=== PATIENT | female | born 1975 | race Two or more races ===

== ENCOUNTER 2017-11-17 14:19 | Emergency (ER) | payer OTHER ==
[2017-11-17] MEDS: IBUPROFEN 600 MG TAB PO (16:37)
== END 2017-11-17 18:08 | disposition home or self-care (01) ==
LOC: FTE 14:19
DX: M54.6 Pain in thoracic spine (principal); M54.5 Low back pain; M25.512 Pain in left shoulder; M25.552 Pain in left hip; M25.572 Pain in left ankle and joints of left foot; R07.9 Chest pain, unspecified
CPT/HCPCS: 71045; 72072; 72100; 73030; 73510; 73610; 93005; 99284-25

== ENCOUNTER 2018-10-17 18:41 | Emergency (ER) | payer OTHER | END 2018-10-17 21:15 | disposition home or self-care (01) | LOC: FTE 21:15 | DX: K08.89 Other specified disorders of teeth and supporting structures (principal); I10 Essential (primary) hypertension; E03.9 Hypothyroidism, unspecified | CPT/HCPCS: 99283; Z7502 ==